=== PATIENT | female | born 1970 | race Caucasian/White ===

== ENCOUNTER 2024-03-17 08:11 | Observation (INO) ==
[2024-03-17 08:51] LABS: ABS Basophils 0.1 10^3/uL (0.0-0.1); ABS Eosinophils 0.1 10^3/uL (0.0-0.5); ABS Lymphocytes 1.8 10^3/uL (1.0-4.8); ABS Monocytes 0.2 10^3/uL (0.0-0.9); ABS Neutrophils 4.8 10^3/uL (1.5-7.6); Eosinophil % 1.9 %; Hematocrit 44.6 % (35-45); Hemoglobin 14.9 g/dL (11.5-14.3); Lymphocyte % 25.3 %; Mean Corpuscular Hemoglobin 27.8 pg (27-33); Mean Corpuscular Hgb Conc 33.4 g/dL (31-36); Mean Corpuscular Volume 83.2 fL (80-97); Mean Platelet Volume 8.1 fL (7.5-11.2); Platelet Count 269 10^3/uL (150-450); Red Blood Count 5.35 10^6/uL (3.63-4.92); Red Cell Distribution Width 15.1 % (12-17)
[2024-03-17 09:02] LABS: INR 1.08 (0.83-1.13)
[2024-03-17 09:23] LABS: Albumin 4.2 g/dL (3.2-5.2); Albumin/Globulin Ratio 1.7 (1-3); Calcium 9.5 mg/dL (8.6-10.3); Creatinine, Serum 0.95 mg/dL (0.51-0.95); Globulin 2.5 g/dL (2-4); Potassium 3.8 mmol/L (3.5-5.0); Total Bilirubin 0.6 mg/dL (0.2-1.0); Total Protein 6.7 g/dL (6.4-8.9); eGFR CKD-EPI 70.8 (>60)
[2024-03-17 09:38] LABS: TSH Ultra Thyroid Stim Horm 2.54 mcIU/mL (0.34-5.60)
[2024-03-17 10:10] LABS: High Sensitivity Troponin 1 Hr 5 pg/mL (<15)
[2024-03-17 12:48] LABS: High Sensitivity Troponin 3 Hr 4 pg/mL (<15)
[2024-03-17] MEDS ORDERED: Nitroglycerin 0.3 mg TAB SL PRN (16:05)
[2024-03-17] MEDS ORDERED: Dextrose 50% Syringe 50 ml 25 GM/50 ML SYRINGE IV PUSH PRN ×2 (16:09)
[2024-03-17] MEDS: Enoxaparin 40 MG/0.4 ML SYR SUBCUT SCH (20:06)
[2024-03-17] MEDS: Lactated Ringers 1000 ml BAG 1,000 ML IV SCH (23:30)
[2024-03-18 06:10] LABS: ABS Basophils 0.1 10^3/uL (0.0-0.1); ABS Eosinophils 0.1 10^3/uL (0.0-0.5); ABS Lymphocytes 3.1 10^3/uL (1.0-4.8); ABS Monocytes 0.4 10^3/uL (0.0-0.9); ABS Neutrophils 3.5 10^3/uL (1.5-7.6); Eosinophil % 1.8 %; Hematocrit 42.7 % (35-45); Lymphocyte % 42.8 %; Mean Corpuscular Hemoglobin 27.3 pg (27-33); Mean Corpuscular Hgb Conc 32.8 g/dL (31-36); Mean Corpuscular Volume 83.2 fL (80-97); Mean Platelet Volume 8.5 fL (7.5-11.2); Nucleated Red Blood Cells % 0.1 %/100WBC (0.0-0.8); Platelet Count 260 10^3/uL (150-450); Red Blood Count 5.14 10^6/uL (3.63-4.92); White Blood Count 7.1 10^3/uL (3.8-11.8)
[2024-03-18 06:27] LABS: Albumin 3.7 g/dL (3.2-5.2); Albumin/Globulin Ratio 1.5 (1-3); Calcium 9.1 mg/dL (8.6-10.3); Creatinine, Serum 0.81 mg/dL (0.51-0.95); Globulin 2.4 g/dL (2-4); Magnesium 2.1 mg/dL (1.9-2.7); Phosphorus 5.3 mg/dL (2.5-5.0); Potassium 4.3 mmol/L (3.5-5.0); Total Bilirubin 0.5 mg/dL (0.2-1.0); Total Protein 6.1 g/dL (6.4-8.9); eGFR CKD-EPI 85.7 (>60)
[2024-03-18] MEDS ORDERED: Aminophylline 25 MG/ML VIAL ONE (09:33)
[2024-03-18] MEDS ORDERED: Regadenoson 0.4 MG/5 ML SYRINGE ONE (09:33)
[2024-03-18] MEDS ORDERED: Sulfur Hexaflouride MICROSPHR 25 MG VIAL ONE (10:28)
[2024-03-18] MEDS: Sulfur Hexaflouride MICROSPHR 25 MG VIAL IV ONE (10:41)
[2024-03-18 13:58] VITALS: BP 133/72
== END 2024-03-18 16:30 | disposition home or self-care (01) ==
LOC: ED 08:11 → EDHOLD 08:11 → SUATTDRO 14:46 → MEDTELE 17:48
PROVIDERS: ADMIT Internal Medicine; ATTEND Internal Medicine